=== PATIENT | female | born 1985 | race Caucasian/White ===

== ENCOUNTER 2020-01-16 05:45 | Inpatient (IN) ==
[2020-01-16] MEDS ORDERED: CeFAZolin Syr 3,000MG/30 ML 3,000 MG/30 ML SYRINGE IVPB ONE (06:37)
[2020-01-16] MEDS ORDERED: Oxytocin 20 units/ LR 1000 mL 20 UNIT/1,000 ML BAG IVC ONE (06:37)
[2020-01-16] MEDS ORDERED: Ringers Solution, Lactated 1,000 ML IVC ONE (06:37)
[2020-01-16] MEDS ORDERED: Naloxone 0.4 MG/ML INJ IVP PRN (06:37)
[2020-01-16] MEDS ORDERED: Azithromycin 500 MG in 0.9 % Sodium Chloride 250 ML IVPB ONE (06:37)
[2020-01-16] MEDS ORDERED: Ringers Solution, Lactated 1,000 ML ONE ×2 (06:38→08:09)
[2020-01-16] MEDS ORDERED: Ringers Solution, Lactated 1,000 ML IVC SCH (06:45)
[2020-01-16] MEDS ORDERED: Oxytocin 20 units/ LR 1000 mL 20 UNIT/1,000 ML BAG IVC SCH ×2 (06:45→12:51)
[2020-01-16 06:55] LABS: Basophils % 0.3 %; Eosinophils # 0.1 K/mcL (0.0-0.6); Eosinophils % 0.9 %; Hematocrit 33.7 % (35.3-44.9); Immature Granulocytes % 0.6 % (0-4); Lymphocytes # 1.7 K/mcL (0.6-4.6); Mean Corpuscular HGB Conc 32.6 g/dL (31.6-35.5); Mean Corpuscular Hemoglobin 29.3 pg (28.0-33.3); Mean Corpuscular Volume 89.6 fL (83.0-100.0); Mean Platelet Volume 9.4 fL (9.4-12.4); Monocytes # 0.8 K/mcL (0.0-1.3); Monocytes % 7.8 %; Neutrophils # 7.7 K/mcL (1.6-8.9); Platelet Count 232 K/mcL (140-400); Red Blood Count 3.76 M/mcL (3.82-4.97); Red Cell Distribution Width 12.7 % (11.5-14.5); Segmented Neutrophils % 74.4 %; White Blood Count 10.3 K/mcL (4.3-11.1)
[2020-01-16] MEDS ORDERED: *HR* Oxytocin 10 UNIT/ML VIAL IM ONE (07:07)
[2020-01-16] MEDS ORDERED: Ondansetron 4 MG/2 ML VIAL ONE (07:07)
[2020-01-16] MEDS ORDERED: *HR* FentaNYL (PF) 100 MCG/2 ML VIAL ONE (07:07)
[2020-01-16] MEDS ORDERED: EPHEDrine 50 MG/ML VIAL ONE (07:07)
[2020-01-16] MEDS ORDERED: *HR* Morphine Sulfate/PF 10 MG/10 ML AMPUL ONE (07:07)
[2020-01-16] MEDS ORDERED: *HR* HYDROmorphone PF 0.5 MG/0.5 ML SYRINGE IVP PRN (07:25)
[2020-01-16] MEDS ORDERED: *HR* OxyCODONE Immed Rel 5 MG TABLET PO PRN (07:25)
[2020-01-16] MEDS ORDERED: Acetaminophen IV 1,000 MG/100 ML INFUS..BTL IVPB ONE (07:25)
[2020-01-16] MEDS ORDERED: Ondansetron 4 MG/2 ML VIAL IVP ONE (07:25)
[2020-01-16] MEDS ORDERED: Acetaminophen IV 1,000 MG/100 ML INFUS..BTL ONE (07:34)
[2020-01-16] MEDS: Famotidine 20 MG/2 ML VIAL IVP ONE ×2 (07:34→07:43)
[2020-01-16] MEDS: Metoclopramide 10 MG/2 ML VIAL IVP ONE ×2 (07:34→07:42)
[2020-01-16 08:08] LABS: Amphetamine Screen,Urine Negative ng/mL (Cutoff=1000); Barbiturate Screen,Urine Negative ng/mL (Cutoff=200); Benzodiazepines Screen,Urine Negative ng/mL (Cutoff=200); Cannabinoid Screen,Urine Negative ng/mL (Cutoff = 50); Cocaine Screen,Urine Negative ng/mL (Cutoff= 300); Opiate Screen,Urine Negative ng/mL (Cutoff=300); Phencyclidine Screen,Urine Negative ng/mL (Cutoff=25)
[2020-01-16] MEDS ORDERED: Simethicone 80 MG TAB.CHEW PO PRN (12:51)
[2020-01-16] MEDS ORDERED: Sennosides 8.6 MG TABLET PO PRN (12:51)
[2020-01-16] MEDS ORDERED: Ondansetron 4 MG/2 ML VIAL IVP PRN (12:51)
[2020-01-16] MEDS ORDERED: Metoclopramide 10 MG/2 ML VIAL IVP PRN (12:51)
[2020-01-16] MEDS: *HR* OxyCODONE/APAP 5/325 TABLET PO PRN ×2 (13:59→19:43)
[2020-01-16] MEDS: metroNIDAZOLE 500 MG TABLET PO SCH ×2 (15:23→19:43)
[2020-01-16] MEDS: ceFAZolin 3,000 MG in 0.9 % Sodium Chloride 100 ML IVPB SCH (15:41)
[2020-01-16] MEDS: Ibuprofen 600 MG TABLET PO PRN (21:37)
[2020-01-16] MEDS: Menthol 9.1 MG LOZENGE PO PRN (21:43)
[2020-01-17] MEDS: *HR* OxyCODONE/APAP 5/325 TABLET PO PRN ×4 (00:36→19:36)
[2020-01-17] MEDS: clonazePAM 1 MG TABLET PO PRN ×2 (01:52→21:20)
[2020-01-17] MEDS ORDERED: Ringers Solution, Lactated 1,000 ML ONE (02:07)
[2020-01-17] MEDS: ceFAZolin 3,000 MG in 0.9 % Sodium Chloride 100 ML IVPB SCH ×2 (02:08→07:35)
[2020-01-17] MEDS: Ibuprofen 600 MG TABLET PO PRN ×3 (04:09→18:07)
[2020-01-17 04:35] LABS: Basophils % 0.3 %; Eosinophils # 0.1 K/mcL (0.0-0.6); Eosinophils % 0.5 %; Hematocrit 30.8 % (35.3-44.9); Hemoglobin 10.2 g/dL (11.5-15.4); Immature Granulocytes % 0.5 % (0-4); Lymphocytes # 0.8 K/mcL (0.6-4.6); Lymphocytes % 7.3 %; Mean Corpuscular HGB Conc 33.1 g/dL (31.6-35.5); Mean Corpuscular Hemoglobin 28.9 pg (28.0-33.3); Mean Corpuscular Volume 87.3 fL (83.0-100.0); Mean Platelet Volume 9.7 fL (9.4-12.4); Monocytes # 0.8 K/mcL (0.0-1.3); Monocytes % 7.4 %; Neutrophils # 9.3 K/mcL (1.6-8.9); Platelet Count 177 K/mcL (140-400); Red Blood Count 3.53 M/mcL (3.82-4.97); Red Cell Distribution Width 12.7 % (11.5-14.5)
[2020-01-17] MEDS: Prenatal Vit/FA 1 EACH TABLET PO SCH (07:34)
[2020-01-17] MEDS: metroNIDAZOLE 500 MG TABLET PO SCH ×3 (07:34→20:10)
[2020-01-17] MEDS: Menthol 9.1 MG LOZENGE PO PRN (08:21)
[2020-01-18] MEDS: Ibuprofen 600 MG TABLET PO PRN ×2 (00:15→06:42)
[2020-01-18] MEDS: *HR* OxyCODONE/APAP 5/325 TABLET PO PRN ×2 (03:10→07:41)
[2020-01-18 04:40] LABS: Basophils % 0.2 %; Eosinophils # 0.2 K/mcL (0.0-0.6); Eosinophils % 1.7 %; Hematocrit 30.4 % (35.3-44.9); Hemoglobin 9.9 g/dL (11.5-15.4); Immature Granulocytes % 0.3 % (0-4); Lymphocytes # 1.3 K/mcL (0.6-4.6); Lymphocytes % 14.2 %; Mean Corpuscular HGB Conc 32.6 g/dL (31.6-35.5); Mean Corpuscular Hemoglobin 29.3 pg (28.0-33.3); Mean Corpuscular Volume 89.9 fL (83.0-100.0); Monocytes # 0.7 K/mcL (0.0-1.3); Monocytes % 7.7 %; Neutrophils # 6.7 K/mcL (1.6-8.9); Platelet Count 199 K/mcL (140-400); Red Blood Count 3.38 M/mcL (3.82-4.97); Red Cell Distribution Width 12.7 % (11.5-14.5); Segmented Neutrophils % 75.9 %; White Blood Count 8.9 K/mcL (4.3-11.1)
[2020-01-18] MEDS: Prenatal Vit/FA 1 EACH TABLET PO SCH (07:40)
[2020-01-18] MEDS: metroNIDAZOLE 500 MG TABLET PO SCH (07:40)
[2020-01-18 08:16] VITALS: BP 115/75
== END 2020-01-18 11:09 | disposition home or self-care (01) ==
LOC: 1NENULAB 05:45 → 1NENUOBS 12:42
PROVIDERS: ADMIT Obstetrics & Gynecology; ATTEND Obstetrics & Gynecology

== ENCOUNTER 2020-07-12 11:11 | Inpatient (IN) ==
[2020-07-12 11:49] LABS: Bacteria,Urine Few per hpf (None-Few); Bilirubin,Urine Negative (Negative); Blood,Urine Small (Negative); Clarity,Urine Clear (Clear); Color,Urine Light-Yellow (Yellow); Glucose,Urine (UA) Normal (Normal); Ketones,Urine Negative (Negative); Leukocyte Esterase,Urine Small (Negative); Mucus,Urine Few per lpf (None-Few); Nitrite,Urine Negative (Negative); PH,Urine 6.5 pH Units (5.0-8.0); Protein,Urine Negative (Neg-Trace); Squamous Epithelial Cell,Urine Few per hpf (None-Few); Urobilinogen,Urine Normal (Normal)
[2020-07-12 12:08] LABS: Amphetamine Screen,Urine Negative ng/mL (Cutoff=1000); Barbiturate Screen,Urine Negative ng/mL (Cutoff=200); Benzodiazepines Screen,Urine Positive ng/mL (Cutoff=200); Cannabinoid Screen,Urine Positive ng/mL (Cutoff = 50); Cocaine Screen,Urine Negative ng/mL (Cutoff= 300); Opiate Screen,Urine Negative ng/mL (Cutoff=300); Phencyclidine Screen,Urine Negative ng/mL (Cutoff=25)
[2020-07-12 12:10] LABS: Basophils # 0.1 K/mcL (0.0-0.2); Basophils % 0.7 %; Eosinophils # 0.2 K/mcL (0.0-0.6); Eosinophils % 1.7 %; Hematocrit 42.8 % (35.3-44.9); Hemoglobin 14.3 g/dL (11.5-15.4); Immature Granulocytes % 0.3 % (0-4); Lymphocytes # 1.3 K/mcL (0.6-4.6); Lymphocytes % 14.2 %; Mean Corpuscular HGB Conc 33.4 g/dL (31.6-35.5); Mean Corpuscular Hemoglobin 30.9 pg (28.0-33.3); Mean Corpuscular Volume 92.4 fL (83.0-100.0); Mean Platelet Volume 9.1 fL (9.4-12.4); Monocytes # 0.5 K/mcL (0.0-1.3); Platelet Count 290 K/mcL (140-400); Red Blood Count 4.63 M/mcL (3.82-4.97); Segmented Neutrophils % 77.1 %
[2020-07-12 12:36] LABS: Acetaminophen < 10 mcg/mL (10-20); BUN/Creatinine Ratio 16 (6-26); Blood Urea Nitrogen 10 mg/dL (6-20); Calcium 9.1 mg/dL (8.6-10.3); Carbon Dioxide 22 mEq/L (23-29); Chloride 107 mEq/L (98-107); Ethanol < 10 mg/dL (Less than 10); Glucose 101 mg/dL (70-105); Osmolality,Calculated 283 (280-300); Potassium 3.7 mEq/L (3.5-5.1); Salicylate < 2.5 mg/dL (15.0-30.0); Sodium 137 mEq/L (136-145); eGFR For African Americans > 60 (> 60); eGFR For Non-African Americans > 60 (> 60)
[2020-07-12] MEDS ORDERED: Haloperidol Lactate 5 MG/ML VIAL IM PRN (13:05)
[2020-07-12] MEDS ORDERED: Acetaminophen 325 MG TABLET PO PRN (13:05)
[2020-07-12] MEDS ORDERED: *HR* LORazepam 1 MG TABLET PO PRN (13:05)
[2020-07-12] MEDS ORDERED: *HR* LORazepam 2 MG/ML VIAL IM PRN (13:05)
[2020-07-12] MEDS ORDERED: Mag Hydrox/Al Hydrox/Simeth 30 ML UDC PO PRN (13:05)
[2020-07-12] MEDS ORDERED: MOM Conc 10 ML UD.LIQ PO PRN (13:05)
[2020-07-12] MEDS ORDERED: haloperidoL 5 MG TABLET PO PRN (13:05)
[2020-07-12] MEDS ORDERED: traZODone 50 MG TABLET PO PRN (13:05)
[2020-07-12] MEDS ORDERED: ALPRAZolam 1 MG TABLET PO PRN (13:07)
[2020-07-12] MEDS: hydrOXYzine pamoate 25 MG CAPSULE PO PRN (20:22)
[2020-07-13] MEDS: hydrOXYzine pamoate 25 MG CAPSULE PO PRN ×2 (18:06→22:30)
[2020-07-13] MEDS: clonazePAM 1 MG TABLET PO SCH (20:47)
[2020-07-14] MEDS: clonazePAM 1 MG TABLET PO SCH (09:52)
[2020-07-14 10:16] VITALS: BP 114/83
== END 2020-07-14 10:45 | disposition home or self-care (01) | DRG 776 ==
LOC: EMEROOARM 11:11 → 1ANU 13:04
PROVIDERS: ADMIT Psychiatry & Neurology Psychiatry; ATTEND Psychiatry & Neurology Psychiatry